=== PATIENT | male | born 1995 | race African-American/Black ===

== ENCOUNTER 2024-06-13 16:30 | Emergency (ER) | payer SELFPAY ==
[~2024-06-13] VITALS: Ht 180.3 cm; Wt 86.2 kg
[2024-06-13 16:35] VITALS: O2SAT 100
[2024-06-13] MEDS: CEFTRIAXONE SODIUM 1G VIAL IM ONE (20:04)
[2024-06-13] MEDS: DOXYCYCLINE HYCLATE 100MG CAPSULE PO ONE (20:04)
[2024-06-13 21:10] VITALS: BP 134/87; PULSE 60; RESP 19; TEMP 37.1; O2SAT 100
[2024-06-16 04:08] LABS: CHLAMYDIA TRACHOMATIS NAA Negative (Negative); NEISSERIA GONORRHOEAE NAA Negative (Negative)
== END 2024-06-13 21:09 | disposition home or self-care (01) ==
LOC: ER 16:30
DX: Z20.2 Contact with and (suspected) exposure to infections with a predominantly sexual mode of transmission (principal)
CPT/HCPCS: 99283; 87491; 87591; J0696